=== PATIENT | male | born 1985 | race African-American/Black ===

== ENCOUNTER 2019-09-04 14:07 | Emergency (ER) | payer SELFPAY ==
--- OUTSIDE RECORDS SUMMARY | 2019-09-04 14:09 | XMS REPORT ---
:1985 Author Organization [facility] Address [address] [place] [address] Dr. Junior [address] [place] [id number] Care Team Providers Name Role Phone Unavailable Unavailable Unavailable Problems This patient has no known problems. Allergies, Adverse Reactions, Alerts This patient has no known allergies or adverse reactions. Medications This patient has no known medications.
--- OUTSIDE RECORDS SUMMARY | 2019-09-04 14:10 | XMS REPORT | Continuity of Care Document ---
:1985 Author Organization [facility] Address [address] [place] [address] Allergies, Adverse Reactions, Alerts No allergy information available. Medications Medication Status Dose Units Route Sig Qty Days Start End Instructions Date Date Azithromycin Discontinu 1 ORAL As 6 April TAKE 2 TABLETS BY MOUTH ON DAY 1, THEN TAKE 1 TABLET BY MOUTH ONCE ed Directe , d for 2018 2018 DAILY ON DAY 2 THROUGH 5. Infecti 1:54pm on Prednisone Discontinu 10 ORAL Once 18 April TAKE 3 TABS ONCE A DAY X 3 DAYS THEN 2 TABS ONCE A DAY X 3 DAYS THEN ed Daily , for 2018 2018 1 TAB ONCE A DAY X 3 DAYS Allergy 1:54pm Problems Active Problems Medical Problem Onset Date Status Upper respiratory infection Active Procedures No procedure information available. Relevant Diagnostic Tests and/or Laboratory Data No known relevant diagnostic tests and/or laboratory data. Health Concerns No known health concerns documented Chief Complaint and Reason for Visit Chief Complaint HEENTL Reason for Visit [id number] Encounters Encounter Location(s) Arrival/Admit Date Discharge/Depart Date Provider(s) Registered [place] April 22, MAYTE LEVY Emergency Room [facility] 2018 12:02pm E Ctr Assessments No Assessments Information Available Functional Status No Functional Status information available Goals No Goals Information Available Immunizations No Immunization Information Available Mental Status No Mental Status Information Available Medical Equipment No Medical Equipment Information available Insurance Providers Guarantor Kassy Yepez Address [address] [place] [address] Contact Info. Home Phone: Payer Policy Id Coverage Id Subscriber's Subscriber Id Effective Expiration Name Date Date Self Pay Kassy Yepez Mora Carver Plan of Treatment DRINK PLENTY OF FLUIDS. USE TYLENOL OR MOTRIN DIRECTED FOR PAIN/FEVER. TAKE ALL MEDICATIONS PRESCRIBED FOLLOW UP WITH A PRIMARY CARE PROVIDER IN 2-3 DAYS RETURN TO THE ER IF YOUR SYMPTOMS WORSEN Future Tests Future scheduled test information is unavailable Pending Tests Test Name Date ordered Throat Culture April 22, 2019 12:34pm Future Visits Future appointment information is unavailable Referrals to Other Providers Reason for Referral Start Provider Provider Contact Provider Address Referral Date Information PHYSICIAN, NO Future Procedures Future procedure information is unavailable Future Medications Future medication information is unavailable Patient Instructions Upper Respiratory Infection, Adult, [id number] Social History Smoking Status Status Date of Observation Smokes tobacco daily (finding) April 22, 2019 12:17pm Observation Status Observation Response Date of Response Hx Physical Abuse No April 22, 2019 12:17pm Assigned Sex Male Vital Signs Vital Reading Result Collection Date/Time
--- NOTE | 2019-09-04 14:49 | ER ---
Nurse's Notes [facility] Name: Dylon Ospina Age: 34 yrs Sex: Male : 1985 Arrival Date: 09/04/2019 Time: 14:11 Bed 13 Private MD: Diagnosis: Acute pharyngitis Presentation: 09/03 14:13 Chief complaint: Patient states: was sent home from work today for a sore throat and iw nausea , symptoms started this morning, +cough, no fever. Coronavirus screen: Patient reports a cough. Patient denies shortness of breath or difficulty breathing. Patient denies measured and/or subjective temperature greater than 100.4F. Patient denies travel on a cruise ship or to a country the [facility] currently lists as an affected area. Patient denies contact with known and/or suspected case of COVID-19. Ebola Screen: Patient negative for fever greater than or equal to 101.5 degrees Fahrenheit, and additional compatible Ebola Virus Disease symptoms Patient denies exposure to infectious person. Patient denies travel to an Ebola-affected area in the 21 days before illness onset. No symptoms or risks identified at this time. Initial Sepsis Screen: Does the patient meet any 2 criteria? No. Patient's initial sepsis screen is negative. Does the patient have a suspected source of infection? No. Patient's initial sepsis screen is negative. Risk Assessment: Do you want to hurt yourself or someone else? Patient reports no desire to harm self or others. 14:13 Method Of Arrival: Ambulatory iw 14:13 Acuity: [place] 4 iw Historical: - Allergies: 14:15 No Known Allergies; iw - Home Meds: 14:15 None [Active]; iw - PMHx: 14:15 None; iw - PSHx: 14:15 None; iw - Immunization history:: Adult Immunizations Adult Immunizations not up to date. - Social history:: Smoking status: Patient reports the use of cigarette tobacco products, smokes one pack cigarettes per day. Screenin:30 Fall Risk None identified. ph 15:10 Abuse screen: Denies threats or abuse. Denies injuries from another. Nutritional ph screening: No deficits noted. Tuberculosis screening: No symptoms or risk factors identified. Assessment: 14:30 General: Appears in no apparent distress. comfortable, Behavior is calm, cooperative, ph appropriate for age, Denies fever. Pain: Complains of pain in throat. Neuro: Level of Consciousness is awake, alert, obeys commands, Oriented to person, place, time, situation. Cardiovascular: Capillary refill < 3 seconds in bilateral fingers Patient's skin is warm and dry. Respiratory: Reports cough that is Airway is patent Respiratory effort is even, unlabored, Breath sounds are clear bilaterally. Denies shortness of breath. GI: Reports nausea, Patient currently denies abdominal pain, diarrhea, vomiting. EENT: Throat is reddened Reports nasal congestion pain when swallowing. Derm: Skin is intact, Skin is pink, warm \T\ dry. Vital Signs: 14:13 BP 131 / 89; Pulse 84; Resp 16; Temp 99.1; Pulse Ox 98% on R/A; Weight 86.18 kg; Height iw 5 ft. 7 in. (170.18 cm); Pain 7/10; 14:13 Body Mass Index 29.76 (86.18 kg, 170.18 cm) iw ED Course: 14:11 Patient arrived in ED. mr 14:15 Triage completed. iw 14:15 Arm band placed on. iw 14:30 Kathy Gutierrez FNP-C is PHCP. snw 14:30 Andrez Rico MD is Attending Physician. snw 14:30 Patient has correct armband on for positive identification. Call light in reach. Side ph rails up X 1. Pulse ox on. NIBP on. Door closed. 14:44 Josi Blanco RN is Primary Nurse. ph 15:15 No provider procedures requiring assistance completed. Patient did not have IV access ph during this emergency room visit. Administered Medications: 15:01 Drug: Zithromax 500 mg Route: PO; ph 15:05 Follow up: Response: No adverse reaction; Medication administered at discharge. ph Outcome: 14:48 Discharge ordered by . snw 15:16 Patient left the ED. ph 15:16 Discharged to home ambulatory. ph 15:16 Condition: good 15:16 Discharge instructions given to patient, Instructed on discharge instructions, follow up and referral plans. medication usage, Demonstrated understanding of instructions, follow-up care, medications, Prescriptions given X 2. Signatures: Kathy Gutierrez FNP-C FNP-Suzan Garcia Irene, RN RN iw Blanco, Josi, RN RN ph
--- NOTE | 2019-09-04 14:49 | EDPHYS ---
Physician Documentation [facility] Name: Dylon Ospina Age: 34 yrs Sex: Male : 1985 Arrival Date: 09/04/2019 Time: 14:11 Bed 13 Private MD: ED Physician Andrez Rico HPI: 09/03 15:13 This 34 yrs old Black Male presents to ER via Ambulatory with complaints of Nausea, snw Sore Throat. 15:13 The patient presents with sore throat. The patient describes throat pain as raw, snw scratchy. Onset: The symptoms/episode began/occurred suddenly, and became persistent. Severity of symptoms: At their worst the symptoms were moderate, severe. Associated signs and symptoms: Pertinent positives: nausea. It is unknown whether or not the patient has had similar symptoms in the past. It is unknown whether or not the patient has recently seen a physician. Historical: - Allergies: 14:15 No Known Allergies; iw - Home Meds: 14:15 None [Active]; iw - PMHx: 14:15 None; iw - PSHx: 14:15 None; iw - Immunization history:: Adult Immunizations Adult Immunizations not up to date. - Social history:: Smoking status: Patient reports the use of cigarette tobacco products, smokes one pack cigarettes per day. ROS: 15:12 Constitutional: Negative for fever, chills, and weight loss, + extreme fatigue Eyes: snw Negative for injury, pain, redness, and discharge, ENT: Negative for injury and discharge, + sore throat Neck: Negative for injury, pain, and swelling, Cardiovascular: Negative for chest pain, palpitations, and edema, Respiratory: Negative for shortness of breath, cough, wheezing, and pleuritic chest pain, Abdomen/GI: Negative for abdominal pain, vomiting, diarrhea, and constipation, + nausea Back: Negative for injury and pain, : Negative for injury, bleeding, discharge, and swelling, MS/Extremity: Negative for injury and deformity, Skin: Negative for injury, rash, and discoloration, Neuro: Negative for headache, weakness, numbness, tingling, and seizure, Psych: Negative for depression, anxiety, suicide ideation, homicidal ideation, and hallucinations. Exam: 15:10 Constitutional: This is a well developed, well nourished patient who is awake, alert, snw and in no acute distress. Head/Face: Normocephalic, atraumatic. Eyes: Pupils equal round and reactive to light, extra-ocular motions intact. Lids and lashes normal. Conjunctiva and sclera are non-icteric and not injected. Cornea within normal limits. Periorbital areas with no swelling, redness, or edema. Neck: Trachea midline, no thyromegaly or masses palpated, and no cervical lymphadenopathy. Supple, full range of motion without nuchal rigidity, or vertebral point tenderness. No Meningismus. Chest/axilla: Normal chest wall appearance and motion. Nontender with no deformity. No lesions are appreciated. Cardiovascular: Regular rate and rhythm with a normal S1 and S2. No gallops, murmurs, or rubs. Normal PMI, no JVD. No pulse deficits. Respiratory: Lungs have equal breath sounds bilaterally, clear to auscultation and percussion. No rales, rhonchi or wheezes noted. No increased work of breathing, no retractions or nasal flaring. Abdomen/GI: Soft, non-tender, with normal bowel sounds. No distension or tympany. No guarding or rebound. No evidence of tenderness throughout. Back: No spinal tenderness. No costovertebral tenderness. Full range of motion. Skin: Warm, dry with normal turgor. Normal color with no rashes, no lesions, and no evidence of cellulitis. MS/ Extremity: Pulses equal, no cyanosis. Neurovascular intact. Full, normal range of motion. Neuro: Awake and alert, GCS 15, oriented to person, place, time, and situation. Cranial nerves II-XII grossly intact. Motor strength 5/5 in all extremities. Sensory grossly intact. Cerebellar exam normal. Normal gait. Psych: Awake, alert, with orientation to person, place and time. Behavior, mood, and affect are within normal limits. 15:10 ENT: External ear(s): are unremarkable, TM's: no acute changes, Nose: no acute changes, Mouth: is normal, Posterior pharynx: erythema, that is mild, that is moderate, Voice: is normal. Vital Signs: 14:13 BP 131 / 89; Pulse 84; Resp 16; Temp 99.1; Pulse Ox 98% on R/A; Weight 86.18 kg; Height iw 5 ft. 7 in. (170.18 cm); Pain 7/10; 14:13 Body Mass Index 29.76 (86.18 kg, 170.18 cm) iw MDM: 14:33 Patient medically screened. snw 15:11 Data reviewed: vital signs, nurses notes. Data interpreted: Pulse oximetry: on room air snw is 98 %. Interpretation: normal. Counseling: I had a detailed discussion with the patient and/or guardian regarding: the historical points, exam findings, and any diagnostic results supporting the discharge/admit diagnosis, the need for outpatient follow up, to return to the emergency department if symptoms worsen or persist or if there are any questions or concerns that arise at home. Special discussion: I have referred the patient to see his PCP for further evaluation of high blood pressure. Based on the history and exam findings, there is no indication for further emergent testing or inpatient evaluation. I discussed with the patient/guardian the need to see the primary care provider for further evaluation of the symptoms. Administered Medications: 15:01 Drug: Zithromax 500 mg Route: PO; ph 15:05 Follow up: Response: No adverse reaction; Medication administered at discharge. ph Disposition: 18:45 Co-signature as Attending Physician, Andrez Rico MD I agree with the assessment and kdr plan of care. Disposition: 09/04/19 14:48 Discharged to Home. Impression: Acute pharyngitis. - Condition is Stable. - Discharge Instructions: Fever, Adult, Pharyngitis, Rehydration, Adult. - Prescriptions for promethazine 25 mg Oral Tablet - take 1 tablet by ORAL route every 6 hours As needed; 20 tablet. Zithromax 500 mg Oral Tablet - take 1 tablet by ORAL route once daily for 5 days; 5 tablet. - Work release form, Medication Reconciliation Form, Thank You Letter, Antibiotic Education, Prescription Opioid Use form. - Follow up: Emergency Department; When: As needed; Reason: Worsening of condition. Follow up: Private Physician; When: 2 - 3 days; Reason: Recheck today's complaints, Continuance of care, Re-evaluation by your physician. Signatures: Andrez Rico MD MD [facility] Kathy Gutierrez, FORK LIFT TRUCK OPERATOR-C FORK LIFT TRUCK OPERATOR-Csnw Deja Albarado, RN RN Josi Blanco RN RN ph Corrections: (The following items were deleted from the chart) 15:16 14:48 09/04/2019 14:48 Discharged to Home. Impression: Acute pharyngitis. Condition is ph Stable. Forms are Medication Reconciliation Form, Thank You Letter, Antibiotic Education, Prescription Opioid Use. Follow up: Emergency Department; When: As needed; Reason: Worsening of condition. Follow up: Private Physician; When: 2 - 3 days; Reason: Recheck today's complaints, Continuance of care, Re-evaluation by your physician. snw
[2019-09-04] MEDS ORDERED: AZITHROMYCIN 250 MG TAB ONE (15:02)
[2019-09-04 15:22] VITALS: BP 131/89; TEMP 99.1; O2SAT 98
== END 2019-09-04 15:16 | disposition home or self-care (01) ==
LOC: ER 14:07
DX: J02.9 Acute pharyngitis, unspecified (principal); F17.210 Nicotine dependence, cigarettes, uncomplicated
CPT/HCPCS: 99283